=== PATIENT | female | born 1965 | race Caucasian/White ===

== ENCOUNTER 2022-11-08 20:09 | Emergency (ER) | payer BC ==
[~2022-11-08] VITALS: Ht 175.3 cm; Wt 70.3 kg
--- NOTE | 2022-11-08 20:33 | NUR ---
BIB FRIEND FOR N/V, HEADACHE, AND CHEST DISCOMFORT X 3 HRS. PT A/OX4. TOLERATING R/A WELL WITH NO RESP DISTRESS. CONNECTED PT TO POX AND MONITOR. SAFETY MEASURES IN PLACE.
[2022-11-08] MEDS ORDERED: ONDANSETRON HCL/PF 4 MG/2 ML VIAL ONE (20:53)
[2022-11-08] MEDS ORDERED: ONDANSETRON HCL/PF 4 MG/2 ML VIAL IVP ONE (21:00)
[2022-11-08] MEDS ORDERED: IV NS 0.9% 1,000 ML BAG IV ONE (21:00)
--- NOTE | 2022-11-08 21:07 | NUR ---
LAC #18G S/L BLOOD COLLECTED AND SENT TO LAB
--- NOTE | 2022-11-08 21:15 | NUR ---
DIRECTOR EXTERNAL COMMUNICATIONS AT PT'S BEDSIDE
[2022-11-08 21:32] LABS: BASOPHILS % (AUTO) 0.4 % (0.0-2.0); EOSINOPHILS % (AUTO) 0.5 % (0.0-6.0); HEMATOCRIT 48 % (33-45); HEMOGLOBIN 15.9 g/dL (11.5-14.8); LYMPHOCYTES # (AUTO) 0.6 K/uL (0.8-4.8); LYMPHOCYTES % (AUTO) 9.6 % (20.0-44.0); MEAN CORPUSCULAR HGB CONC 33 g/dl (31.0-36.0); MEAN CORPUSCULAR VOLUME 95 fL (82-100); MONOCYTES # (AUTO) 0.3 K/uL (0.1-1.30); MONOCYTES % (AUTO) 4.1 % (2.0-12.0); NEUTROPHILS # (AUTO) 5.4 K/uL (1.8-8.9); NEUTROPHILS % (AUTO) 85.4 % (43.0-81.0); PLATELET COUNT (AUTO) 282 K/uL (150-450); RED BLOOD CELL COUNT(AUTO) 5.02 MIL/uL (4.0-5.2); WHITE BLOOD COUNT (AUTO) 6.4 K/uL (4.3-11.0)
[2022-11-08 21:42] LABS: CALCIUM, SERUM 8.8 mg/dL (8.5-10.1); CARBON DIOXIDE 26 mmol/L (21-32); CHLORIDE 104 mmol/L (98-107); CREATININE 0.9 mg/dL (0.6-1.3); GLUCOSE 103 mg/dL (74-106); POTASSIUM 3.4 mmol/L (3.5-5.1); SODIUM SERUM 140 mmol/L (136-145); UREA NITROGEN, BLOOD 32 mg/dL (7-18)
[2022-11-08 21:49] LABS: ALANINE AMINOTRANSFERASE 141 U/L (12-78); ALBUMIN 3.9 g/dL (3.4-5.0); ALKALINE PHOSPHATASE 84 U/L (46-116); ASPARTATE AMINOTRANSFERASE 65 U/L (15-37); BILIRUBIN,DIRECT 0.2 mg/dL (0.0-0.2)
[2022-11-08] MEDS ORDERED: METOCLOPRAMIDE HCL 10 MG/2 ML VIAL IV ONE (23:00)
[2022-11-08] MEDS ORDERED: METOCLOPRAMIDE HCL 10 MG/2 ML VIAL ONE (23:08)
--- NOTE | 2022-11-08 23:27 | NUR ---
URINE COLLECTED AND SENT TO LAB
[2022-11-08] MEDS ORDERED: MAG HYDROX/AL HYDROX/SIMETH 30 ML UDC ONE (23:41)
[2022-11-08] MEDS ORDERED: FAMOTIDINE/PF INJ 20 MG/2 ML VIAL IV ONE (23:43)
[2022-11-08] MEDS ORDERED: FAMO20TA8 PO (23:48)
[2022-11-08] MEDS ORDERED: ONDA4TAB11 PO (23:48)
[2022-11-08] MEDS: LIDOCAINE VISCOUS 2% UD 15 ML UDC MM ONE (23:49)
--- NOTE | 2022-11-08 23:50 | NUR ---
Patient discharged to home in stable condition. Written and verbal after care instructions given. Patient verbalizes understanding of instruction.
[2022-11-08 23:51] VITALS: BP 132/80
[2022-11-09] MEDS ORDERED: MAG HYDROX/AL HYDROX/SIMETH 30 ML UDC PO ONE
[2022-11-09] MEDS ORDERED: FAMOTIDINE/PF INJ 20 MG/2 ML VIAL IV ONE
[2022-11-09] MEDS ORDERED: MAG HYDROX/AL HYDROX/SIMETH 30 ML UDC ONE (00:01)
[2022-11-09] MEDS: LIDOCAINE VISCOUS 2% UD 15 ML UDC MM ONE (00:02)
[2022-11-09 00:04] LABS: BILIRUBIN,URINE NEGATIVE (NEGATIVE); COLOR,URINE YELLOW (YELLOW); LEUKOCYTE ESTERASE ,URINE TRACE (NEGATIVE); NITRITE, URINE POSITIVE (NEGATIVE); PROTEIN,URINE NEGATIVE (NEGATIVE); UGLUCOSE NEGATIVE (NEGATIVE)
[2022-11-09 00:06] LABS: BACTERIA,URINE Few /HPF (None Seen); RBC,URINE 0-2 /HPF (0-2); SQUAMOUS EPITHELIAL CELL,UR Rare /HPF (None Seen)
== END 2022-11-09 00:06 | disposition home or self-care (01) ==
LOC: ER 20:17
DX: R07.89 Other chest pain (principal); R11.2 Nausea with vomiting, unspecified; R51.9 Headache, unspecified; Z86.16 Personal history of COVID-19; Z88.1 Allergy status to other antibiotic agents; Z88.5 Allergy status to narcotic agent; Z79.899 Other long term (current) drug therapy
CPT/HCPCS: 99285; 96374; 71045; 96375; 96361; 93005; 85025; 80048; 87086; 80076; 84703; 81001; 36415; 84484 ×2; J3490; J2765; J2405; J7030